=== PATIENT | female | born 1975 | race Caucasian/White ===

== ENCOUNTER 2022-12-28 13:25 | Outpatient (OUT) | payer BC, SELFPAY ==
[2022-12-28 14:03] LABS: Basophils Absolute Auto 0.1 10^3/uL (0.0-0.1); Basophils Percent Auto 0.7 % (0.2-2.0); Eosinophils Absolute Auto 0.1 10^3/uL (0.0-0.7); Eosinophils Percent Auto 1.1 % (0.9-7.0); Hematocrit 41.2 % (36.0-48.0); Immature Granulocytes Abs Auto 0.02 10^3/uL (0.00-0.03); Immature Granulocytes Pct Auto 0.3 % (0.0-0.5); Mean Corpuscular Hemoglobin 30.8 pg (26.7-34.0); Mean Corpuscular Volume 90.5 fL (81.0-99.0); Mean Platelet Volume 10.2 fL (9.5-13.5); Monocytes Absolute Auto 0.5 10^3/uL (0.3-0.8); Monocytes Percent Auto 6.7 % (1.7-12.0); Neutrophils Absolute Auto 4.5 10^3/uL (1.4-6.5); Neutrophils Percent Auto 63.2 % (43.0-75.0); Platelet Count 300 10^3/uL (150-450); Red Blood Count 4.55 10^6/uL (4.20-5.40); Red Cell Distribution Width 11.9 % (11.0-15.0); White Blood Count 7.1 10^3/uL (4.0-11.0)
[2022-12-28 14:21] LABS: Estimated Average Glucose 94 mg/dL; Glycohemoglobin A1C 4.9 % (4.5-6.2)
[2022-12-28 15:21] LABS: Alanine Aminotransferase 20 U/L (14-59); Albumin Globulin Ratio 1.2; Albumin Level 4.1 g/dL (3.4-5.0); Alkaline Phosphatase 48 U/L (46-116); Anion Gap 10.1; Aspartate Amino Transferase 15 U/L (15-37); BUN Creatinine Ratio 6.6; Bilirubin Total 0.7 mg/dL (0.2-1.0); Calcium 8.6 mg/dL (8.5-10.1); Carbon Dioxide 29.5 mmol/L (21.0-32.0); Chloride 101 mmol/L (98-107); Chol HDL Ratio 2.6; Cholesterol 168 mg/dL (<=200); Estimated GFR (African America >60 (>=60); Estimated GFR (Non-African Ame >60 (>=60); Globulin 3.4 g/dL; Glucose 85 mg/dL (74-106); HDL Cholesterol 65 mg/dL (40-60); Potassium 3.6 mmol/L (3.5-5.1); Sodium 137 mmol/L (136-145); Thyroid Stimulating Hormone 0.925 uIU/mL (0.358-3.740); Total Protein 7.5 g/dL (6.4-8.2); Triglycerides 66 mg/dL (<=150); VLDL CHOLESTEROL 13.2 mg/dL
== END 2022-12-28 13:26 | disposition home or self-care (01) ==
PROVIDERS: PCP Nurse Practitioner; Visit Provider Nurse Practitioner
DX: Z00.00 Encounter for general adult medical examination without abnormal findings (principal)
CPT/HCPCS: 36415; 80053; 80061; 83036; 84443; 85025

== ENCOUNTER 2023-01-15 18:37 | Emergency (ER) | payer BC, SELFPAY ==
[2023-01-15 18:50] VITALS: BP 153/88; PULSE 69; RESP 18; TEMP 36.7; O2SAT 98; BMI 27.1
--- NOTE | 2023-01-15 18:57 | CT_ITS ---
The [address] [address] Patient Name: ANA CHO MRN: [id number] date: 1975 Sex: F Assigned Patient Location: ER Current Patient Location: ER Accession/Order Number: [id number] Exam Date: 01/15/2023 19:28 Report Date: 01/15/2023 20:09 At the request of: MIGNON NARAYANAN Procedure: CT facial bones wo con EXAM: CT facial bones wo con TECHNIQUE: Axial CT images were obtained through the facial bones along with sagittal and coronal reformatted images. Dose reduction techniques were achieved by using automated exposure control and/or adjustment of mA and/or kV according to patient size and/or use of iterative reconstruction technique. HISTORY: trauma COMPARISON: None. FINDINGS: Fracture: None Orbits: Globes are intact. Extraocular musculature is unremarkable and symmetric. There is no retrobulbar hematoma. Soft tissues: No soft tissue mass or large soft tissue hematoma. Sinuses: Minimal mucosal thickening left maxillary sinus. CT/CT facial bones wo con IMPRESSION: No facial bone fracture Electronically authenticated by: CATIE ROSENBERG Date: 01/15/2023 20:09
--- NOTE | 2023-01-15 19:14 | ED.FALL1 ---
HPI - Fall General Chief Complaint: Fall Stated Complaint: FALL FACE INJURY Time Seen by Provider: 01/15/23 18:55 Source: patient Mode of arrival: walk-in Limitations: no limitations History of Present Illness HPI Narrative: 47-year-old female presents for primarily facial injuries. She was riding her bike and the dog's leash was tied to the handlebars and the squirrel ran across the street. The dog lurched for the squirrel and it pulled her down and she landed primarily on her face but also sustained abrasions to her leg. Her LOC. No chest pain shortness of breath or abdominal pain. No LOC. This happened just before coming into the emergency department. Related Data Home Medications Medication Instructions Recorded Confirmed No Known Home Medications 01/15/23 01/15/23 Previous Rx's Medication Instructions Recorded acetaminophen 300 mg-codeine 30 mg 1 tab PO Q6H PRN pain #20 tabs 01/15/23 tablet Allergies Allergy/AdvReac Type Severity Reaction Status Date / Time No Known Drug Allergies Allergy Verified 01/15/23 18:55 Review of Systems ROS Narrative A ten point review of systems is negative except as noted above. Exam Narrative Exam Narrative: Nurses note and vital signs reviewed and patient is not hypoxic. General: The patient appears well and in no apparent distress. Patient is resting comfortably on cart. Skin: Warm, dry, no pallor noted. There is no rash noted. Head: Normocephalic, abrasions present primarily on her chin and a small bruise on the inside the lower lip. No tooth is cracked chipped or loose. There is some tenderness and swelling to her nose and minimal amount of bruising just medial to the left eye at the base of the bridge of the nose. No laceration present that would require sutures. Eye: Normal conjunctiva, no drainage Ears, Nose, Mouth, and Throat: oral mucosa is moist. Nares patent. Cardiovascular: Regular Rate and Rhythm Respiratory: Patient is in no distress, no accessory muscle use, lungs are clear to auscultation, no wheezing, rales or rhonchi Back: non-tender in the cervical, thoracic, and lumbar spines GI: soft and nontender Musculoskeletal: all extremity joints have full range of motion. There are abrasions to her legs and at the right anterior superior iliac spine area. Neurological: A&O, normal speech Psychiatric: Cooperative Constitutional Vital Signs, click to edit/add: Last Vital Signs Temp 98.1 F 01/15/23 18:50 Pulse 75 01/15/23 20:05 Resp 14 01/15/23 20:05 BP 128/89 01/15/23 20:05 Pulse Ox 98 01/15/23 20:05 O2 Del Method Room Air 01/15/23 18:50 Course Vital Signs Vital signs: Vital Signs Temperature 98.1 F 01/15/23 18:50 Pulse Rate 69 01/15/23 18:50 Respiratory Rate 18 01/15/23 18:50 Blood Pressure 153/88 H 01/15/23 18:50 Pulse Oximetry 98 01/15/23 18:50 Oxygen Delivery Method Room Air 01/15/23 18:50 Temperature 98.1 F 01/15/23 18:50 Pulse Rate 75 01/15/23 20:05 Respiratory Rate 14 01/15/23 20:05 Blood Pressure 128/89 01/15/23 20:05 Pulse Oximetry 98 01/15/23 20:05 Oxygen Delivery Method Room Air 01/15/23 18:50 MDM - Fall MDM Narrative Medical decision making narrative: CT scan of facial bones per radiologist shows no acute findings. Tetanus is already up-to-date and she is provided Tylenol 3 as pain medication. Treatment diagnosis and follow-up were discussed with the patient. Differential Diagnosis Differential diagnosis: Likely other (facial fracture, facial abrasions) Imaging Data CT facial bones: Radiologist's impression: no acute findings Discharge Plan Discharge Chief Complaint: Fall Clinical Impression: Abrasion of face Patient Disposition: Home, Self-Care Time of Disposition Decision: 20:17 Condition: Good Mode of Transportation: Private Vehicle Prescriptions / Home Meds: New acetaminophen-codeine 300-30 mg tablet 1 tab PO Q6H PRN (Reason: pain) Qty: 20 0RF Rx Instructions: S00.81XA No Action No Known Home Medications Instructions: Abrasion (ED) Stand Alone Forms: Portal Instructions Referrals: Loida Arroyo [Primary Care Provider] - 1 week
--- NOTE | 2023-01-15 19:27 | PC.NURSE ---
Pt was riding her bike with her dog leash hooked to her bike when her dog saw a squirrel and took off after it. Pt face planted the ground/grass sustaining bruising and abrasions to chin, bruising to left inner eye area where her glasses stuck in her face. pt also has a bruise to her right thigh and an abrasion to right lower extremity.
[2023-01-15 20:05] VITALS: BP 128/89; PULSE 75; RESP 14; O2SAT 98
[2023-01-15 20:32] VITALS: BP 129/89; PULSE 62; RESP 14; TEMP 36.6; O2SAT 98
== END 2023-01-15 20:42 | disposition home or self-care (01) ==
PROVIDERS: Emergency Provider Emergency Medicine; PCP Nurse Practitioner
DX: S00.81XA Abrasion of other part of head, initial encounter (principal); V19.3XXA Pedal cyclist (driver) (passenger) injured in unspecified nontraffic accident, initial encounter
CPT/HCPCS: 70486; 99284

== ENCOUNTER 2023-12-29 07:41 | Outpatient (OUT) | payer BC, SELFPAY ==
[2023-12-29 08:16] LABS: Estimated Average Glucose 82 mg/dL; Glycohemoglobin A1C 4.5 % (4.5-6.2)
[2023-12-29 08:19] LABS: Basophils Absolute Auto 0.1 10^3/uL (0.0-0.1); Basophils Percent Auto 1.2 % (0.2-2.0); Eosinophils Absolute Auto 0.1 10^3/uL (0.0-0.7); Eosinophils Percent Auto 1.3 % (0.9-7.0); Hematocrit 39.9 % (36.0-48.0); Hemoglobin 13.5 g/dL (12.0-16.0); Immature Granulocytes Abs Auto 0.02 10^3/uL (0.00-0.03); Immature Granulocytes Pct Auto 0.3 % (0.0-0.5); Lymphocytes Absolute Auto 1.3 10^3/uL (1.2-3.8); Lymphocytes Percent Auto 22.2 % (20.5-60.0); Mean Corpuscular HGB Conc 33.8 g/dL (29.9-35.2); Mean Corpuscular Volume 91.5 fL (81.0-99.0); Mean Platelet Volume 10.1 fL (9.5-13.5); Monocytes Absolute Auto 0.8 10^3/uL (0.3-0.8); Monocytes Percent Auto 12.7 % (1.7-12.0); Neutrophils Absolute Auto 3.7 10^3/uL (1.4-6.5); Neutrophils Percent Auto 62.3 % (43.0-75.0); Platelet Count 253 10^3/uL (150-450); Red Blood Count 4.36 10^6/uL (4.20-5.40)
[2023-12-29 08:28] LABS: Alanine Aminotransferase 16 U/L (14-59); Albumin Globulin Ratio 1.2; Albumin Level 3.7 g/dL (3.4-5.0); Alkaline Phosphatase 49 U/L (46-116); Anion Gap 9.1; Aspartate Amino Transferase 10 U/L (15-37); BUN Creatinine Ratio 9.5; Bilirubin Total 0.5 mg/dL (0.2-1.0); Calcium 8.8 mg/dL (8.5-10.1); Chloride 103 mmol/L (98-107); Chol HDL Ratio 2.3; Cholesterol 163 mg/dL (<=200); Estimated GFR (African America >60 (>=60); Estimated GFR (Non-African Ame >60 (>=60); Globulin 3.1 g/dL; Glucose 95 mg/dL (74-106); HDL Cholesterol 70 mg/dL (40-60); Potassium 4.1 mmol/L (3.5-5.1); Sodium 137 mmol/L (136-145); Thyroid Stimulating Hormone 1.805 uIU/mL (0.358-3.740); Total Protein 6.8 g/dL (6.4-8.2); Triglycerides 50 mg/dL (<=150)
== END 2023-12-29 07:42 | disposition home or self-care (01) ==
LOC: LAB 07:42
PROVIDERS: PCP Nurse Practitioner; Visit Provider Nurse Practitioner
DX: Z00.00 Encounter for general adult medical examination without abnormal findings (principal)
CPT/HCPCS: 36415; 80053; 80061; 83036; 84443; 85025

== ENCOUNTER 2025-01-01 11:56 | Outpatient (OUT) | payer BC, SELFPAY ==
--- OUTSIDE RECORDS SUMMARY | 2024-12-31 11:30 | XMS_ITS | Encounter Summary ---
Author Organization [facility] Address [address] [place] [address] Care Team Providers Care Health Safety Specialist Name Role Phone Venkatesh Tinoco MD Primary Care Provider [phone] Loida Arroyo OFFICER CAPTAIN Unavailable [phone] Reason for Visit * Reason Comments Annual Exam Encounter Details Date Type Department Care Team (Late st Contact Info) Description 12/31/2024 11:30 AM EDT [facility] Visit [facility] [address] [place] [address] Loida Arroyo, YAS [address] [place] [address] Encounter for wellness examination (Primary Dx); Encounter for screening mammogram for malignant neoplasm of breast; Colon cancer screening Social History Tobacco Use Types Packs/Day Years Used Date Smoking Tobacco: Never Smokeless Tobacco: Never Alcohol Use Standard Drinks/Week Comments Not Currently 0 (1 standard drink = 0.6 oz pure alcohol) caffine: sweet tea once a month B1300 Health Literacy Answer Date Recor ded How often do you need to hav e someone help you when you read instructions, pamphlets, or other written material from your doctor or pharmacy? Never 12/26/2023 Social Connection and Isolat ion Panel [NHANES] Answer Date Recorded In a typical week, how many times do you talk on the phone with family, friends, or neighbors? More than three times a week 12/26/2023 How often do you get togethe r with friends or relatives? Once a week 12/26/2023 How often do you attend chur ch or evangelical services? More than 4 times per year 12/26/2023 Do you belong to any clubs o r organizations such as mu-ism groups, unions, fraternal or athletic groups, or school groups? Yes 12/26/2023 How often do you attend meet ings of the clubs or organizations you belong to? More than 4 times per year 12/26/2023 Are you , , di vorced, , never , or living with a partner? 12/26/2023 AUDIT-C Answer Date Recorded Q1: How often do you have a drink containing alc ohol? 2-4 times a month 12/26/2023 Q2: How many drinks containi ng alcohol do you have on a typical day when you are drinking? 1 or 2 12/26/2023 Q3: How often do you have si x or more drinks on one occasion? Never 12/26/2023 Overall Financial Resource Strain (CARDIA) Answe r Date Recorded How hard is it for you to pa y for the very basics like food, housing, medical care, and heating? Not hard at all 12/26/2023 PHQ-2 Answer Date Recorded Patient Health Questionnaire-2 Score 0 12/26/2023 [facility] - Occupational Stress Questionnaire Answer Date Recorded Do you feel stress - tense, restless, nervous, or anxious, or unable to sleep at night because your mind is troubled all the time - these days? Not at all 12/26/2023 Exercise Vital Sign Answer Date Recorde d On average, how many days pe r week do you engage in moderate to strenuous exercise (like a brisk walk)? 5 days 12/26/2023 On average, how many minutes do you engage in exercise at this level? 20 min 12/26/2023 Hunger Vital Sign Answer Date Recorded Within the past 12 months, y ou worried that your food would run out before you got the money to buy more. Never true 12/26/19 24 Within the past 12 months, t he food you bought just didn't last and you didn't have money to get more. Never true 12/26/2023 PRAPARE - Transportation Answer Date Re corded In the past 12 months, has l ack of transportation kept you from medical appointments or from getting medications? No 12/07 In the past 12 months, has l ack of transportation kept you from meetings, work, or from getting things needed for daily living? No 12/26/2023 Housing Stability Vital Sign Answer Geovany e Recorded In the last 12 months, was t here a time when you were not able to pay the mortgage or rent on time? No 12/26/2023 In the past 12 months, how m any times have you moved where you were living? 0 12/26/2023 At any time in the past 12 m [facility], were you homeless or living in a group home (including now)? No 12/26/2023 Comments Unknown Sex and Gender Information Value Date Recorded Sex Assigned at Not on file Legal Sex Female 6:49 PM EDT Gender Identity Female 07/20/2022 6:49 PM EDT Sexual Orientation Not on file documented as of this encounter Last Filed Vital Signs Vital Sign Reading Time Taken Comments Blood Pressure 108/76 12/31/2024 10:56 AM EDT Pulse 60 12/31/2024 10:56 AM EDT Temperature 36.8 C (98.3 F) 12/31/2024 10:56 AM EDT Respiratory Rate 18 12/31/2024 10:56 AM EDT Oxygen Saturation 98% 12/31/2024 10:56 AM EDT Inhaled Oxygen Concentration - - Weight 58.3 kg (128 lb 9.6 oz) 12/31/2024 10:56 AM EDT Height - - Body Mass Index 22.07 12/26/2023 2:16 PM EDT documented in this encounter Progress Notes * Loida Arroyo NP - 12/31/2024 11:30 AM EDT Images from the original note were not included. Arlyn Mayes is a 49 y.o. female presents with chief complaint of Annual Exam HPI: Diet:balanced, needs more diet Activity: daily, walks dog, and core Mental Health Concerns: depression (supplement) Any hearing problems: no Any Vision problems: glasses Any Hospitalizations in the last year: no Specialist:no Concerns: no SUBJECTIVE: MEDICATIONS: No current outpatient medications ALLERGIES: No Known Allergies REVIEW OF SYMPTOMS: Review of Systems Constitutional: Negative for appetite change, chills and fever. HENT: Negative for congestion, ear pain and sore throat. Eyes: Negative for pain, discharge, redness and visual disturbance. Respiratory: Negative for cough, shortness of breath and wheezing. Cardiovascular: Negative for chest pain, palpitations and leg swelling. Gastrointestinal: Negative for abdominal pain, blood in stool, constipation, diarrhea, nausea and vomiting. Genitourinary: Negative for difficulty urinating, dysuria and frequency. Musculoskeletal: Negative for arthralgias, back pain, joint swelling and myalgias. Skin: Negative for rash and wound. Neurological: Negative for dizziness, tremors, seizures, syncope and headaches. Psychiatric/Behavioral: Negative for behavioral problems, self-injury and suicidal ideas. The patient is not nervous/anxious. Hematological: Does not bruise/bleed easily. Endocrine: Negative for polydipsia, polyphagia and polyuria. Allergic/Immunologic: Negative for environmental allergies and food allergies. PAST MEDICAL HISTORY No past medical history on file. Past Surgical History: Procedure Laterality Date BI US GUIDED BREAST LOCALIZATION AND BIOPSY LEFT Left 02/12/2016 BI US GUIDED BREAST LOCALIZATION AND BIOPSY LEFT 02/12/2016 family history is not on file. OBJECTIVE: Visit Vitals BP 108/76 (BP Location: Left arm, Patient Position: Sitting, BP Cuff Size: Adult long) Pulse 60 Temp 98.3 ??F (Temporal) Resp 18 Wt 128 lb 9.6 oz SpO2 98% BMI 22.07 kg/m?? Smoking Status Never BSA 1.62 m?? Physical Exam Vitals and nursing note reviewed. Constitutional: General: She is not in acute distress. Appearance: Normal appearance. HENT: Head: Normocephalic and atraumatic. Right Ear: External ear normal. Left Ear: External ear normal. Nose: Nose normal. Mouth/Throat: Mouth: Mucous membranes are moist. Eyes: Extraocular Movements: Extraocular movements intact. Conjunctiva/sclera: Conjunctivae normal. Neck: Vascular: No carotid bruit. Cardiovascular: Rate and Rhythm: Normal rate and regular rhythm. Pulses: Normal pulses. Heart sounds: Normal heart sounds. No murmur heard. Pulmonary: Effort: Pulmonary effort is normal. Breath sounds: Normal breath sounds. No wheezing or rhonchi. Abdominal: General: Bowel sounds are normal. There is no distension. Palpations: Abdomen is soft. There is no mass. Tenderness: There is no abdominal tenderness. Musculoskeletal: General: Normal range of motion. Cervical back: Normal range of motion and neck supple. Right lower leg: No edema. Left lower leg: No edema. Lymphadenopathy: Cervical: No cervical adenopathy. Skin: General: Skin is warm and dry. Capillary Refill: Capillary refill takes 2 to 3 seconds. Findings: No rash. Neurological: General: No focal deficit present. Mental Status: She is alert and oriented to person, place, and time. Psychiatric: Mood and Affect: Mood normal. Behavior: Behavior normal. Thought Content: Thought content normal. Judgment: Judgment normal. ASSESSMENT AND PLAN: No follow-ups on file. Problem List Items Addressed This Visit Encounter for wellness examination - Primary Reviewed Ht/Wt/BMI Recommend eye exam yearly Recommend dental exams twice a year Balance work/leisure activities Exercises is recommended most days of the week (appropriate as chronic conditions allow) Follow up yearly and prn Relevant Orders CBC and differential Comprehensive metabolic panel Lipid panel TSH Hemoglobin A1c Encounter for screening mammogram for malignant neoplasm of breast Recommend that she get a yearly mammogram Encourage monthly BSE Declines Colon cancer screening Colon cancer screening options were discussed with patient, as well as why colon cancer screening is indicated. Options are Colonoscopy: direct visualization, every 10 years (unless indicated more frequently), risks and benefits were discussed Cologuard: every 3 years, risks and benefits were discussed , contraindications were discussed (family hx of colon cancer, colon polyps) Patient has elected to: will think about it * Loida Arroyo NP - 12/31/2024 6:31 AM EDTAssociated Problem(s): Colon cancer screening Colon cancer screening options were discussed with patient, as well as why colon cancer screening is indicated. Options are Colonoscopy: direct visualization, every 10 years (unless indicated more frequently), risks and benefits were discussed Cologuard: every 3 years, risks and benefits were discussed , contraindications were discussed (family hx of colon cancer, colon polyps) Patient has elected to: will think about it * Loida Arroyo NP - 12/31/2024 6:31 AM EDTAssociated Problem(s): Encounter for screening mammogram for malignant neoplasm of breast Recommend that she get a yearly mammogram Encourage monthly BSE Declines * Loida Arroyo NP - 12/31/2024 6:30 AM EDTAssociated Problem(s): Encounter for wellness examination Reviewed Ht/Wt/BMI Recommend eye exam yearly Recommend dental exams twice a year Balance work/leisure activities Exercises is recommended most days of the week (appropriate as chronic conditions allow) Follow up yearly and prn documented in this encounter Plan of Treatment Scheduled Orders Name Type Priority Associated Diagnoses Orde r Schedule CBC and differential Lab Routine Encounter for wellness examination Expected: 12/31/2024 (Approximate), Expires: 12/31/2025 Comprehensive metabolic panel Lab Routine Encounter for wellness examination Expected: 12/31/2024 (Approximate), Expires: 12/31/2025 Lipid panel Lab Routine Encounter for wellness examination Expected: 12/31/2024 (Approximate), Expires: 12/31/2025 TSH Lab Routine Encounter for wellness examination Expected: 12/31/2024 (Approximate), Expires: 12/31/2025 Hemoglobin A1c Lab Routine Encounter for wellness examination Expected: 12/31/2024 (Approximate), Expires: 12/31/2025 documented as of this encounter Visit Diagnoses Diagnosis Encounter for wellness examination- Primary Encounter for screening mammogram for malignant neoplasm of breast Colon cancer screening Special screening for malignant neoplasms, colon documented in this encounter Care Teams Health Safety Specialist Relationship Specialty Start Date End Date Venkatesh Tinoco MD [address] [place] [address] PCP - General Family Medicine 10/24/24 Loida Arroyo NP [address] [place] [address] Nurse Practitioner Family Medicine 10/24/24 documented as of this encounter
--- OUTSIDE RECORDS SUMMARY | 2025-01-01 11:58 | XMS_ITS | Clinical Summary ---
Author Organization [facility] Healthcare Address [address] [place] [address] Care Team Providers Care Case Mgr Name Role Phone Venkatesh Tinoco MD Primary Care Provider [phone] Loida Arroyo YARROW GATHERER Unavailable [phone] Allergies No known active allergies Medications No known medications Active Problems Problem Noted Date Diagnosed Date Encounter for screening mamm ogram for malignant neoplasm of breast 12/31/2024 Assessment & Plan (12/31/2024 12:37 PM EDT): Recommend that she get a yearly mammogram Encourage monthly BSE Declines Colon cancer screening 12/31/2024 Assessment & Plan (12/31/2024 12:37 PM EDT): Colon cancer screening options were discussed with patient, as well as why colon cancer screening is indicated. Options are Colonoscopy: direct visualization, every 10 years (unless indicated more frequently), risks and benefits were discussed Cologuard: every 3 years, risks and benefits were discussed , contraindications were discussed (family hx of colon cancer, colon polyps) Patient has elected to: will think about it Encounter for wellness examination 12/26/2023 Assessment & Plan (12/31/2024 6:30 AM EDT): Reviewed Ht/Wt/BMI Recommend eye exam yearly Recommend dental exams twice a year Balance work/leisure activities Exercises is recommended most days of the week (appropriate as chronic conditions allow) Follow up yearly and prn Assessment & Plan (12/26/2023 2:44 PM EDT): Reviewed Ht/Wt/BMI Recommend eye exam yearly Recommend dental exams twice a year Balance work/leisure activities Exercises is recommended most days of the week (appropriate as chronic conditions allow) Follow up yearly and prn Lump of breast, left 03/10/2016 Encounters Date Type Department Care Team Description 12/31/2024 11:30 AM EDT Office Visit [facility] [address] [place] [address] Loida Arroyo NP Encounter for wellness examination (Primary Dx); Encounter for screening mammogram for malignant neoplasm of breast; Colon cancer screening 12/31/2024 Bamboo flowsheet [facility] [address] [place] [address] Loida Arroyo NP from Last 3 Months Immunizations Immunization Administration Dates Next Due Influenza, injectable, quadrivalent 03/18/2019,0 01/30/2018,03/15/2017 Influenza, injectable, quadr ivalent, preservative free 02/17/2016 Influenza, seasonal, injecta ble, preservative free 03/04/2015,02/08/2013,03/16/2012 Td (adult), 5 Lf tetanus tox oid, preservative free, adsorbed 06/23/2009 Tdap 03/16/2016,06/19/2011,06/23/2009 Social History Tobacco Use Types Packs/Day Years Used Date Smoking Tobacco: Never Smokeless Tobacco: Never Tobacco Cessation:Counseling Given: Not Answered Alcohol Use Standard Drinks/Week Comments Not Currently [...] often do you attend chur ch or taoism services? More than 4 times per year 12/26/2023 Do you belong to any clubs o r organizations such as cheondoism groups, unions, fraternal or athletic groups, or [...] Recorded Patient Health Questionnaire-2 Score 0 12/26/2023 [facility] of Occupat ional Health - Occupational Stress [...] any time in the past 12 m [facility], were you homeless or living in a group home (including now)? No 12/26/2023 Comments Unknown Sex and Gender Information Value Date Recorded Sex Assigned at Not on file Legal Sex Female 6:49 PM EDT Gender Identity Female 07/20/2022 6:49 PM EDT Sexual Orientation Not on file Last Filed Vital Signs Vital Sign Reading Time Taken Comments Blood Pressure 108/76 12/31/2024 10:56 AM EDT Pulse 60 12/31/2024 10:56 AM EDT Temperature 36.8 C (98.3 F) 12/31/2024 10:56 AM EDT Respiratory Rate 18 12/31/2024 10:56 AM EDT Oxygen Saturation 98% 12/31/2024 10:56 AM EDT Inhaled Oxygen Concentration - - Weight 58.3 kg (128 lb 9.6 oz) 12/31/2024 10:56 AM EDT Height 162.6 cm (5' 4 ) 12/26/2023 2:16 PM EDT Body Mass Index 22.07 12/26/2023 2:16 PM EDT Plan of Treatment Health Maintenance Due Date Last Done Comments CT Colonography 1977 Colonoscopy 1977 FIT-DNA 1977 FIT 1977 FOBT 1977 Sigmoidoscopy 1977 HPV/Cotest 2007 Colorectal Cancer Screening 12/31/2025 Postponed from 1977 (Patient Refused) Mammogram 12/31/2025 12/31/2024 (Denice ent Refused), 12/26/2023 (Patient Refused), 12/07/2018, Additional history exists Cervical Cancer Screening 12/25/2026 Pap Smear 12/25/2026 12/26/2023 (Denice ent Refused) Influenza Vaccine Discontinued 03/18/2019, , 03/15/2017, Additional history exists Procedures Procedure Name Priority Date/Time Associated Diagnosis Comments BI MAMMOGRAM SCREENING BILATERAL Routine 12/07/2018 Encounter for other screening for malignant neoplasm of breast Encounter for screening for malignant neoplasm of cervix Encounter for gynecological examination (general) (routine) without abnormal findings from Last 3 Months or Most Recently Relevant to Health Maintenance Results * Bilateral screening mammogram (12/07/2018) Anatomical Region Laterality Modality Breast Bilateral Mammography Impressions 12/07/2018 12:00 AM EDT CATEGORY 2 ? Benign. Electronically Signed by: Atul Hughes at 2018-12-07 11:[id number] Narrative 12/07/2018 12:00 AM EDT PERFORMED AT [facility] LOCATION:[place] [id number] [facility] [address] ?? X-Ray ?? CT ?? MRI ?? Mammography ?? Ultrasound ?? Bone Density PATIENT NAME: , ORDERING PHYSICIAN: PATIENT : EXAM DATE: EXAM: PROCEDURE: CC and MLO views of both breasts were performed, comparison made to the prior exam of 2017. FINDINGS: Breast composition demonstrates heterogeneously dense parenchyma. Typically benign calcifications remain. No suspicious microcalcifications, asymmetry, architectural distortion or associated features are present. Overall appearance is stable. Procedure Note CONVERSION, GENERIC - 11/11/2022 PERFORMED AT [facility] LOCATION:[place] [address] [address], [address], [place] [address] ?? X-Ray ?? CT ?? MRI ?? Mammography ?? Ultrasound ?? Bone Density PATIENT NAME: , ORDERING PHYSICIAN: PATIENT : EXAM DATE: EXAM: PROCEDURE: CC and MLO views of both breasts were performed, comparisonmade to the prior exam of 2017. FINDINGS: Breast composition demonstrates heterogeneously dense parenchyma.Typically benign calcifications remain. No suspicious microcalcifications, asymmetry,architectural distortion or associated features are present. Overall appearance isstable. IMPRESSION: CATEGORY 2 ? Benign. Electronically Signed by: Atul Hughes at :[id number] Nancy Gonzalez Mir[facility] CN IMG BI PROCEDURES Final Resu lt from Last 3 Months or Most Recently Relevant to Health Maintenance Insurance [employer] Care Teams Case Mgr Relationship Specialty Start Date End Date Venkatesh Tinoco MD [address] [place] [phone] PCP - General Family Medicine 10/24/24 Loida Arroyo NP [address] [place] [phone] Nurse Practitioner Family Medicine 10/24/24
--- OUTSIDE RECORDS SUMMARY | 2025-01-01 11:58 | XMS_ITS | Clinical Summary ---
Author Organization [facility] Address [id number] [address] [place] [address] Care Team Providers Care Chicken Vaccinator Name Role Phone Unavailable Primary Care Provider Unavailabl e Allergies No known active allergies Medications folic acid (FOLVITE) 800 MCG tablet Take 400 mcg by mouth daily. Active VIRT-PN DHA 27-1-300 mg capsule Take by mouth once daily. 0 02/27/2016 Active norethindrone (MICRONOR) 0.35 mg tabletIndication s: examination following vaginal delivery Take 1 tablet (0.35 mg total) by mouth daily. 28 tablet 12 04/25/2016 Active Active Problems Problem Noted Date Diagnosed Date Vaginal delivery 03/16/2016 First degree perineal laceration during delivery 03/16/2016 Hypertension affecting in third trimes ter 03/14/2016 Gestational hypertension 03/14/2016 High-risk , elderly multigravida in third trimester 03/10/2016 Lump of breast, left 03/10/2016 Immunizations Immunization Administration Dates Next Due Tdap 03/16/2016 Family History Medical History Relation Name Comments Breast cancer Maternal Grandmother Breast cancer Paternal Grandmother Cancer Paternal Grandmother liver Relation Name Status Comments Maternal Grandmother Paternal Grandmother Social History Tobacco Use Types Packs/Day Years Used Date Smoking Tobacco: Never Smokeless Tobacco: Never Alcohol Use Standard Drinks/Week Comments Yes 0 (1 standard drink = 0.6 oz pur e alcohol) occasional Childcare Answer Date Recorded Childcare Unknown 10/17/2018 Employment Answer Date Recorded Employment Unknown 10/17/2018 Purpose - Life Answer Date Recorded Purpose and direction in life Unknown Comments No Sex and Gender Information Value Date Recorded Sex Assigned at Not on file Legal Sex Female 12:04 PM EDT Gender Identity Not on file Sexual Orientation Not on file Last Filed Vital Signs Vital Sign Reading Time Taken Comments Blood Pressure 118/82 04/25/2016 1:56 PM EST Pulse 68 03/16/2016 4:17 PM EST Temperature 36.6 C (97.9 F) 03/16/2016 2:13 PM EST Respiratory Rate 16 03/16/2016 2:13 PM EST Oxygen Saturation 99% 03/15/2016 5:00 AM EST Inhaled Oxygen Concentration - - Weight 68.9 kg (152 lb) 04/25/2016 1:56 PM EST Height 160 cm (5' 3 ) 04/25/2016 1:56 PM EST Body Mass Index 26.93 04/25/2016 1:56 PM EST Plan of Treatment Health Maintenance Due Date Last Done Comments Depression Screening 1989 Tobacco Screening 1989 Adult BMI Screening 1995 Pap Smear 1998 Influenza Vaccine 01/06/2025 DTaP,Tdap and Td Vaccines (2 - Td or Tdap) 03/16/2026 03/16/2016 Medical Devices Not on file Insurance [employer]
--- OUTSIDE RECORDS SUMMARY | 2025-01-01 11:58 | XMS_ITS | Encounter Summary ---
Author Organization [facility] Address [address] [place] [address] Care Team Providers Care Director Traffic And Planning Name Role Phone Venkatesh Tinoco MD Primary Care Provider Loida Arroyo ACCOUNTS RECEIVABLE REPRESENTATIVE Unavailable [phone] Encounter Details Date Type Department Care Team (Late st Contact Info) Description 12/31/2024 Bamboo flowsheet [facility] [address] [place] [phone] Loida Arroyo, ACCOUNTS RECEIVABLE REPRESENTATIVE [address] [place] [id number] Social History Tobacco Use Types Packs/Day Years [...] week 12/26/2023 How often do you attend [facility] or druze services? More than 4 times per year 12/26/2023 Do you belong to any clubs o r organizations such as restorationist groups, unions, fraternal or athletic groups, or [...] Recorded Patient Health Questionnaire-2 Score 0 12/26/2023 [facility] of Occupat ional Health - Occupational Stress [...] any time in the past 12 m [facility], were you homeless or living in a long-term (including now)? No 12/26/2023 Comments Unknown Sex and Gender Information Value Date Recorded Sex Assigned at Not on file Legal Sex Female 6:49 PM EDT Gender Identity Female 07/20/2022 6:49 PM EDT Sexual Orientation Not on file documented as of this encounter Plan of Treatment Not on file documented as of this encounter Visit Diagnoses Not on filedocumented in this encounter Care Teams Director Traffic And Planning Relationship Specialty Start Date End Date Venkatesh Tinoco MD [address] [place] [address] PCP - General Family Medicine 10/24/24 Loida Arroyo NP [address] [place] [address] Nurse Practitioner Family Medicine 10/24/24 documented as of this encounter
[2025-01-01 12:14] LABS: Hematocrit 40.6 % (36.0-48.0); Hemoglobin 14.3 g/dL (12.0-16.0); Immature Granulocytes Abs Auto 0.02 10^3/uL (0.00-0.03); Immature Granulocytes Pct Auto 0.3 % (0.0-0.5); Lymphocytes Absolute Auto 2.1 10^3/uL (1.2-3.8); Mean Corpuscular HGB Conc 35.2 g/dL (29.9-35.2); Mean Corpuscular Hemoglobin 31.6 pg (26.7-34.0); Mean Corpuscular Volume 89.8 fL (81.0-99.0); Platelet Count 289 10^3/uL (150-450); Red Blood Count 4.52 10^6/uL (4.20-5.40); White Blood Count 8.0 10^3/uL (4.0-11.0)
--- OUTSIDE RECORDS SUMMARY | 2025-01-01 12:39 | XMS_ITS | CCD ---
Author Organization [facility] Inform ion Partnership MUSIC EDUCATION ADJUNCT PROFESSOR [facility] Care Team Providers Care Associate Business Analyst Name Role Phone OLIVER BRODERICK Consulting Unavailable OLIVER BRODERICK Attending Unavailable OLIVER BRODERICK Admitting Unavailable LOIDA ARROYO Attending Unavailable Amber Motta MD Primary Care Provider Cruz THEOLOGY TEACHER, Loida Unavailable Venkatesh Tinoco MD Primary Care Provider [phone] Cruz THEOLOGY TEACHER, Loida Unavailable Problems Active Problems Problem Classification Problem Date Documented Da te Episodic/Chronic Other screening for suspected conditions (not mental disorders or infectious disease) (12 sources) Patient encounter status; Translations: [Encounter for screening mammogram for malignant neoplasm of breast] Onset: 12-31-2024 12-31-2024 Episodic Past or Other Problems Problem Classification Problem Date Documented Da te Episodic/Chronic Nonmalignant breast conditions (8 sources) Lump in left breast; Translations: [Unspecified lump in the left breast, unspecified quadrant] Onset: 03-10-2016 12-26-2023 Episodic Results Test Name Value Interpretation Reference Range Facility ALL CBC WITH AUTO DIFFon BASOPHILS ABSOLUTE AUTO 0 [facility] Basophils/100 WBC (Bld) 0.5 % 0.2 - 2.0 % [facility] Eosinophils/100 WBC (Bld) 0.4 % Low 0.9 - 7.0 % [facility] Erythrocyte distribution width (RBC) [Ratio] 11.7 % 11.0 - 15.0 % [facility] Hematocrit (Bld) [Volume fraction] 40.6 % 36.0 - 48.0 % [facility] Hemoglobin (Bld) [Mass/Vol] 14.3 g/dL 12.0 - 16.0 g/dL [facility] IMMATURE GRANULOCYTES ABS AUTO 0.02 [facility] Immature granulocytes/100 WBC (Bld) 0.3 % 0.0 - 0.5 % [facility] Interpretation and review of laboratory results [facility] LYMPHOC[facility]TES ABSOLUTE AUTO 2.1 [facility] Lymphocytes/100 WBC (Bld) 26.1 % 20.5 - 60.0 % [facility] MCH (RBC) [Entitic mass] 31.6 pg 26.7 - 34.0 pg [facility] MCHC (RBC) [Mass/Vol] 35.2 g/dL 29.9 - 35.2 g/dL [facility] MCV (RBC) [Entitic vol] 89.8 fL 81.0 - 99.0 fL [facility] MONOCYTES ABSOLUTE AUTO 0.5 [facility] Monocytes/100 WBC (Bld) 6.3 % 1.7 - 12.0 % [facility] NEUTROPHILS ABSOLUTE AUTO 5.3 [facility] Neutrophils/100 WBC (Bld) 66.4 % 43.0 - 75.0 % [facility] Platelet mean volume (Bld) [Entitic vol] 10.1 fL 9.5 - 13.5 fL [facility] TBH EO # 0 [facility] TBH PLT 289 [facility] TB RBC 4.52 [facility] WBC 8 [facility] ALL CBC WITH AUTO DIFFon BASOPHILS ABSOLUTE AUTO 0.1 [facility] Basophils/100 WBC (Bld) 1.2 % 0.2 - 2.0 % [facility] Eosinophils/100 WBC (Bld) 1.3 % 0.9 - 7.0 % [facility] Erythrocyte distribution width (RBC) [Ratio] 12.0 % 11.0 - 15.0 % [facility] Hematocrit (Bld) [Volume fraction] 39.9 % 36.0 - 48.0 % [facility] Hemoglobin (Bld) [Mass/Vol] 13.5 g/dL 12.0 - 16.0 g/dL [facility] IMMATURE GRANULOCYTES ABS AUTO 0.02 [facility] Immature granulocytes/100 WBC (Bld) 0.3 % 0.0 - 0.5 % [facility] Interpretation and review of laboratory results [facility] LYMPHOCYTES ABSOLUTE AUTO 1.3 [facility] Lymphocytes/100 WBC (Bld) 22.2 % 20.5 - 60.0 % [facility] MCH (RBC) [Entitic mass] 31.0 pg 26.7 - 34.0 pg [facility] MCHC (RBC) [Mass/Vol] 33.8 g/dL 29.9 - 35.2 g/dL [facility] MCV (RBC) [Entitic vol] 91.5 fL 81.0 - 99.0 fL [facility] MONOCYTES ABSOLUTE AUTO 0.8 [facility] Monocytes/100 WBC (Bld) 12.7 % High 1.7 - 12.0 % [facility] NEUTROPHILS ABSOLUTE AUTO 3.7 [facility] Neutrophils/100 WBC (Bld) 62.3 % 43.0 - 75.0 % [facility] Platelet mean volume (Bld) [Entitic vol] 10.1 fL 9.5 - 13.5 fL [facility] TBH EO # [facility].1 [facility] TB RBC 4.36 [facility] TBH WBC 6.0 [facility] QUANTIFERON TB GOLD PLUSon 0 08-08-2021 QuantiFERON Criteria Comment Normal [facility] Comment on above: Result Comment: The QuantiFERON-TB Gold Plus result is determined by subtracting the Nil value from either TB antigen (Ag) tube. The mitogen tube serves as a control for the test. Performed By: #### Q NTTB #### [facility] [address] [place] [address] Dr. Lori Sapp QuantiFERON Incubation Incubation performed. Normal [facility] Comment on above: Performed By: #### Q NTTB #### [facility] [address] [place] [address] Dr. Lori Sapp QuantiFERON Mitogen Value >10.00 Normal [facility] Comment on above: Performed By: #### Q NTTB #### [facility] [address] [place] [address] Dr. Lori Sapp QuantiFERON Nil Value 0.08 IU/mL Normal [facility] Comment on above: Performed By: #### Q NTTB #### [facility] [address] [place] [address] Dr. Lori Sapp QuantiFERON TB1 Ag Value 0.06 IU/mL Normal [facility] Comment on above: Performed By: #### Q NTTB #### [facility] [address] [place] [address] Dr. Lori Sapp QuantiFERON TB2 Ag Value 0.07 IU/mL Normal [facility] Comment on above: Performed By: #### Q NTTB #### [facility] [address] [place] [address] Dr. Lori Sapp QuantiFERON-TB Gold Plus Negative Normal Negative [facility] Comment on above: Result Comment: Chem iluminescence immunoassay methodology Performed By: #### Q NTTB #### [facility] [address] [place] [address] Dr. Lori Sapp HEPATITIS B SURFACE ANTIBODY , QUANTon 08-07-2021 Hepatitis B Surf AB Quant 55.3 mIU/mL Normal Immunity>9.9 [facility] Comment on above: Result Comment: Stat us of Immunity Anti-HBs Level Inconsistent with Immunity 0.0 - 9.9 Consistent with Immunity >9.9 Performed By: #### H EPBSRF #### [facility] [address] [place] [address] Dr. Lori Sapp MMR IMMUNITYon 08-07-2021 Mumps Abs, IgG <9.0 Critically low Immune >10.9 [facility] Comment on above: Result Comment: Nega tive <9.0 Equivocal 9.0 - 10.9 Positive >10.9 A positive result generally indicates past exposure to Mumps virus or previous vaccination. Performed By: #### M MRIMMU #### [facility] [address] [place] [address] Dr. Lori Sapp Rubella Antibodies, IgG 1.30 index Normal Immune >0.99 [facility] Comment on above: Result Comment: Non- immune <0.90 Equivocal 0.90 - 0.99 Immune >0.99 Performed By: #### M MRIMMU #### [facility] [address] [place], [place] [address] Dr. Lori Sapp Rubeola Ab, IgG 23.7 AU/mL Normal Immune >16.4 [facility] Comment on above: Result Comment: Nega tive <13.5 Equivocal 13.5 - 16.4 Positive >16.4 Presence of antibodies to Rubeola is presumptive evidence of immunity except when acute infection is suspected. Performed By: #### M MRIMMU #### [facility] [address] [place], [place] [address] Dr. Lori Sapp VARICELLA IGG ABon 2 Varicella Zoster IgG 1123 index Normal Immune >165 [facility] Comment on above: Result Comment: Nega tive <135 Equivocal 135 - 165 Positive >165 A positive result generally indicates exposure to the pathogen or administration of specific immunoglobulins, but it is not indication of active infection or stage of disease. Performed By: #### V ARCEL #### [facility] [address] [place], [place] [address] Dr. Lori Sapp Vital Signs Date Time Vital Sign Value Performing Clinician Faci lity 12-31-2024 10:56-0400 Body mass index (BMI) [Ratio] 22.07 kg/m2 Loida Arroyo THEOLOGY TEACHER Work Phone: [facility] 12-31-2024 10:56-0400 Body temperature 98.29 [degF] Loida Cruz THEOLOGY TEACHER Work Phone: [facility] 12-31-2024 10:56-0400 Body weight 58.33 kg Loida Arroyo THEOLOGY TEACHER Work Phone: [facility] 12-31-2024 10:56-0400 Diastolic blood pressure 76 mm[Hg] Loida Arroyo THEOLOGY TEACHER Work Phone: [facility] 12-31-2024 10:56-0400 Heart rate 60 /min Loida Arroyo THEOLOGY TEACHER Work Phone: [facility] 12-31-2024 10:56-0400 Respiratory rate 18 /min Loida Arroyo THEOLOGY TEACHER Work Phone: [facility] 12-31-2024 10:56-0400 SaO2% (BldA) [Mass fraction] 98 % Loidaisaías Dyez THEOLOGY TEACHER Work Phone: [facility] 12-31-2024 10:56-0400 Systolic blood pressure 108 mm[Hg] Loidaisaías Geigerholz THEOLOGY TEACHER Work Phone: [facility] 12-26-2023 14:16-0400 Body height 162.6 cm Loidaisaías Geigerholz THEOLOGY TEACHER Work Phone: [facility] 12-26-2023 14:16-0400 Body mass index (BMI) [Ratio] 22.73 kg/m2 Loida Juanjoholz THEOLOGY TEACHER Work Phone: [facility] 12-26-2023 14:16-0400 Body temperature 97.81 [degF] Loidaisaías Geigerbrandonz THEOLOGY TEACHER Work Phone: [facility] 12-26-2023 14:16-0400 Body weight 60.06 kg Loidaisaías Geigerholz THEOLOGY TEACHER Work Phone: [facility] 12-26-2023 14:16-0400 Diastolic blood pressure 78 mm[Hg] Loidaisaías Geigerholz THEOLOGY TEACHER Work Phone: [facility] 12-26-2023 14:16-0400 Heart rate 74 /min Loidaisaías Geigerholz THEOLOGY TEACHER Work Phone: [facility] 12-26-2023 14:16-0400 Respiratory rate 18 /min Loidaisaías Geigerholz THEOLOGY TEACHER Work Phone: [facility] 12-26-2023 14:16-0400 SaO2% (BldA) [Mass fraction] 100 % Loida Juanjoholz THEOLOGY TEACHER Work Phone: [facility] 12-26-2023 14:16-0400 Systolic blood pressure 112 mm[Hg] Loida Juanjoholz THEOLOGY TEACHER Work Phone: [facility] Healthcare Encounters Encounter Date Encounter Type Care Provider Facility Start: 01-01-2025 End: 01-01-2025 [facility] Result Encounter Loida Arroyo THEOLOGY TEACHER Work Phone: [facility] Unsolicited Start: 01-01-2025 End: 01-01-2025 [facility] Result Encounter Loida Arroyo THEOLOGY TEACHER Work Phone: [facility] Unsolicited Start: 12-31-2024 End: 12-31-2024 Bamboo flowsheet Loida Arroyo THEOLOGY TEACHER Work Phone: [facility] Start: 12-31-2024 End: 12-31-2024 Bamboo flowsheet Loida Arroyo THEOLOGY TEACHER Work Phone: [facility] Start: 12-31-2024 End: 12-31-2024 Patient encounter status Loida Arroyo THEOLOGY TEACHER Work Phone: [facility] Work Phone: Start: 12-31-2024 End: 12-31-2024 Periodic preventive med est patient 40-64yrs Loida Arroyo THEOLOGY TEACHER Work Phone: [facility] Comment on above: Encounter for wellne ss examination (Primary Dx); Encounter for screening mammogram for malignant neoplasm of breast; Colon cancer screening Start: 12-29-2023 End: 12-29-2023 [facility] Result Encounter Loida Arroyo THEOLOGY TEACHER Work Phone: [facility] Unsolicited Start: 12-29-2023 End: 12-29-2023 [facility] Result Encounter Loida Arroyo THEOLOGY TEACHER Work Phone: [facility] Unsolicited Start: 12-26-2023 End: 12-26-2023 Bamboo flowsheet Loida Dyefreddie THEOLOGY TEACHER Work Phone: [facility] Start: 12-26-2023 End: 12-26-2023 Bamboo flowsheet Loida Dyefreddie THEOLOGY TEACHER Work Phone: [facility] Start: 12-26-2023 End: 12-26-2023 Patient encounter status Loida Arroyo THEOLOGY TEACHER Work Phone: [facility] Start: 12-26-2023 End: 12-26-2023 Periodic preventive med est patient 40-64yrs Loida Cruz THEOLOGY TEACHER Work Phone: [facility] Comment on above: Encounter for [facility] examination (Primary Dx) Start: 12-26-2023 End: 12-26-2023 ambulatory LOIDA ARROYO Not Available Start: 08-06-2021 End: 08-06-2021 ambulatory OLIVER DAVIE Facility: Procedures Date Procedure Procedure Detail Performing Clinician Start: 01-01-2025 ALL CBC WITH AUTO DIFF Loida Arroyo THEOLOGY TEACHER Work Phone: Start: 12-31-2024 Mammography Loida Juanjonatasha raúl THEOLOGY TEACHER Work Phone: Start: 12-29-2023 ALL CBC WITH AUTO DIFF Loida Arroyo THEOLOGY TEACHER Work Phone: Start: 12-26-2023 Mammography Loida Ronatashanatasha raúl THEOLOGY TEACHER Work Phone: Start: 12-26-2023 Microscopic observat ion [Identifier] in Cervix by Cyto stain Loida Arroyo THEOLOGY TEACHER Work Phone: Start: 12-07-2018 Mammography Loida Phillips raúl THEOLOGY TEACHER Work Phone: Plan of Treatment Date Care Activity Detail Author Start: 12-25-2026 Screening for malign ant neoplasm of cervix [facility] Start: 12-31-2025 Screening for malign ant neoplasm of breast Mammogram [facility] Start: 12-31-2025 Screening for malign ant neoplasm of colon Colorectal Cancer Screening [facility] Comment on above: Postponed from 06/29 (Patient Refused) Start: 12-31-2024 End: 12-31-2025 CBC W Auto Differential panel - Blood CBC and differential Lab Routine Encounter for wellness examination Expected: 12/31/2024 (Approximate), Expires: 12/31/2025 [facility] Work Phone: Comment on above: Expected: 12/31/2024 (Approximate), Expires: 12/31/2025 Start: 12-31-2024 End: 12-31-2025 Comprehensive metabolic 2000 panel - Serum or Plasma Comprehensive metabolic panel Lab Routine Encounter for wellness examination Expected: 12/31/2024 (Approximate), Expires: 12/31/2025 [facility] Comment on above: Expected: 12/31/2024 (Approximate), Expires: 12/31/2025 Start: 12-31-2024 End: 12-31-2025 Hemoglobin A1c/Hemoglobin.total in Blood Hemoglobin A1c Lab Routine Encounter for wellness examination Expected: 12/31/2024 (Approximate), Expires: 12/31/2025 [facility] Comment on above: Expected: 12/31/2024 (Approximate), Expires: 12/31/2025 Start: 12-31-2024 End: 12-31-2025 Lipid 1996 panel - Serum or Plasma Lipid panel Lab Routine Encounter for wellness examination Expected: 12/31/2024 (Approximate), Expires: 12/31/2025 [facility] Comment on above: Expected: 12/31/2024 (Approximate), Expires: 12/31/2025 Start: 12-31-2024 End: 12-31-2025 Thyrotropin [Units/volume] in Serum or Plasma TSH Lab Routine Encounter for wellness examination Expected: 12/31/2024 (Approximate), Expires: 12/31/2025 [facility] Comment on above: Expected: 12/31/2024 (Approximate), Expires: 12/31/2025 Start: 12-31-2024 End: 12-31-2024 Patient encounter procedure 12/31/2024 11:30 AM EDT Office Visit [facility] [address] [place] [address] Loida Arroyo NP [address] [place] [address] Encounter for wellness examination (Primary Dx); Encounter for screening mammogram for malignant neoplasm of breast; Colon cancer screening [facility] Comment on above: Encounter for wellne ss examination (Primary Dx); Encounter for screening mammogram for malignant neoplasm of breast; Colon cancer screening Start: 12-25-2024 Screening for malign ant neoplasm of breast Mammogram [facility] Start: 12-25-2024 Screening for malign ant neoplasm of colon Colorectal Cancer Screening [facility] Comment on above: Postponed from 06/29 (Patient Refused) Start: 01-07-2024 Influenza vaccination Influenza Vacc ine (#1) [facility] Start: 12-26-2023 End: 12-25-2024 CBC W Auto Differential panel - Blood CBC and differential Lab Routine Encounter for wellness examination Expected: 12/26/2023 (Approximate), Expires: 12/25/2024 [facility] Work Phone: Comment on above: Expected: 12/26/2023 (Approximate), Expires: 12/25/2024 Start: 12-26-2023 End: 12-25-2024 Comprehensive metabolic 2000 panel - Serum or Plasma Comprehensive metabolic panel Lab Routine Encounter for wellness examination Expected: 12/26/2023 (Approximate), Expires: 12/25/2024 [facility] Comment on above: Expected: 12/26/2023 (Approximate), Expires: 12/25/2024 Start: 12-26-2023 End: 12-25-2024 Hemoglobin A1c/Hemoglobin.total in Blood Hemoglobin A1c Lab Routine Encounter for wellness examination Expected: 12/26/2023 (Approximate), Expires: 12/25/2024 [facility] Comment on above: Expected: 12/26/2023 (Approximate), Expires: 12/25/2024 Start: 12-26-2023 End: 12-25-2024 Lipid 1996 panel - Serum or Plasma Lipid panel Lab Routine Encounter for wellness examination Expected: 12/26/2023 (Approximate), Expires: 12/25/2024 [facility] Comment on above: Expected: 12/26/2023 (Approximate), Expires: 12/25/2024 Start: 12-26-2023 End: 12-26-2023 Patient encounter procedure 12/26/2023 2:00 PM EDT Office Visit [facility] [address] [place] [address] Loida Arroyo, YAS [address] [place] [address] Encounter for wellness examination (Primary Dx) [facility] Comment on above: Encounter for wellne ss examination (Primary Dx) Start: 12-26-2023 End: 12-25-2024 Thyrotropin [Units/volume] in Serum or Plasma TSH Lab Routine Encounter for wellness examination Expected: 12/26/2023 (Approximate), Expires: 12/25/2024 [facility] Comment on above: Expected: 12/26/2023 (Approximate), Expires: 12/25/2024 Start: 12-08-2019 Screening for malign ant neoplasm of breast Mammogram [facility] Start: 2007 Screening for malign ant neoplasm of cervix [facility] Start: 1998 Screening for malign ant neoplasm of cervix Pap Smear [facility] Start: 1977 Screening for malign ant neoplasm of colon [facility] Immunizations Immunization Date Immunization Notes Care Provider [facility] 03-18-2019 influenza, injectabl e, quadrivalent, contains preservative Loida Aichholz THEOLOGY TEACHER Work Phone: [facility] 03-18-2019 influenza virus vacc ine, unspecified formulation Loida Aichholz THEOLOGY TEACHER Work Phone: [facility] 01-30-2018 influenza, injectabl e, quadrivalent, contains preservative Loida Aichholz THEOLOGY TEACHER Work Phone: [facility] 03-15-2017 influenza, injectabl e, quadrivalent, contains preservative Loida Aichholz THEOLOGY TEACHER Work Phone: [facility] 03-16-2016 tetanus toxoid, redu buddy diphtheria toxoid, and acellular pertussis vaccine, adsorbed Loida Aichholz THEOLOGY TEACHER Work Phone: [facility] 02-17-2016 influenza, injectabl e, quadrivalent, preservative free Loida Aichholz THEOLOGY TEACHER Work Phone: [facility] 03-04-2015 influenza, seasonal, injectable, preservative free Loida Aichholz THEOLOGY TEACHER Work Phone: [facility] 02-08-2013 influenza, seasonal, injectable, preservative free Loida Aichholz THEOLOGY TEACHER Work Phone: [facility] 03-16-2012 influenza, seasonal, injectable, preservative free Loida Aichholz THEOLOGY TEACHER Work Phone: [facility] 06-19-2011 tetanus toxoid, redu buddy diphtheria toxoid, and acellular pertussis vaccine, adsorbed Loida Aichholz THEOLOGY TEACHER Work Phone: [facility] 06-23-2009 tetanus and diphther ia toxoids, adsorbed, preservative free, for adult use (5 Lf of tetanus toxoid and 2 Lf of diphtheria toxoid) Loida Aichholz THEOLOGY TEACHER Work Phone: [facility] 06-23-2009 tetanus toxoid, redu buddy diphtheria toxoid, and acellular pertussis vaccine, adsorbed Loida Aichholz THEOLOGY TEACHER Work Phone: [facility] Payers Date Payer Category [facility] [id number] 2022 [id number] 2022-Present [phone] [address] [place] [address] [id number] 2022 Unknown [id number] 1975 Unknown [id number] 1957 Self-pay Unknown 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 smoking consumption unknown [facility] Start: 1975 Sex assigned at Not on file [facility] Start: 07-20-2022 Gender identity Identifies as female gender (finding) [facility] Start: 12-26-2023 End: 12-31-2024 Sexual orientation Not on file [facility] Start: 12-26-2023 Tobacco smoking status MEIS Never sm oked tobacco [facility] Start: 12-26-2023 Tobacco use and exposure Smoke less tobacco non-user [facility] Start: 12-26-2023 End: 12-31-2024 Alcoholic beverage intake Ex-drinker (finding) [facility] Start: 12-26-2023 End: 12-31-2024 History of Social function [facility] How often do you nee d to have someone help you when you read instructions, pamphlets, or other written material from your doctor or pharmacy [SILS] Never [facility] Do you belong to any clubs or organizations such as restoration groups, unions, fraternal or athletic groups, or school groups? Yes [facility] Are you now , , , , never or living with a partner? [facility] How often to you hav e a drink containing alcohol? 2-4 times a month [facility] How many standard dr inks containing alcohol do you have on a typical day? 1 or 2 [facility] How often do you hav e 6 or more drinks on 1 occasion? Never [facility] Do you feel stress - tense, restless, nervous, or anxious, or unable to sleep at night because your mind is troubled all the time - these days [OSQ] Not at all [facility] (I/We) worried wheth er (my/our) food would run out before (I/we) got money to buy more. Never true [facility] In the past 12 month s, was there a time when you were not able to pay the mortgage or rent on time? No [facility] Start: 12-26-2023 Alcohol Comment caffine: sweet tea once a month [facility] History of Present illness Narrative 12-31-2024 Loida Arroyo, THEOLOGY TEACHER - 12/31/2024 11:30 AM Trip Arroyo, THEOLOGY TEACHER - 12/31/2024 6:31 AM Trip Arroyo, THEOLOGY TEACHER - 12/31/2024 6:31 AM Trip Arroyo, THEOLOGY TEACHER - 12/31/2024 6:30 AM EDT Note Date & Type Note Facility 12-31-2024 History of Presen t illness Narrative Images from the original note were not [...] Size: Adult long) Pulse 60 Temp 98.3 F (Temporal) Resp 18 Wt 128 lb 9.6 oz SpO2 98% BMI 22.07 kg/m Smoking Status Never BSA 1.62 m Physical Exam Vitals and nursing note reviewed. [...] has elected to: will think about it Associated Problem(s): Colon cancer screening Colon cancer screening [...] has elected to: will think about it Associated Problem(s): Encounter for screening mammogram for malignant neoplasm of breast Recommend that she get a yearly mammogram Encourage monthly BSE Declines Associated Problem(s): Encounter for wellness examination Reviewed Ht/Wt/BMI Recommend eye exam yearly Recommend dental exams twice a year Balance work/leisure activities Exercises is recommended most days of the week (appropriate as chronic conditions allow) Follow up yearly and prn documented in this encounter [facility] History of Present illness Narrative 12-26-2023 Loida Arroyo NP - 12/26/2023 2:44 PM EDTLamilcar Arrooy NP - 12/26/2023 2:00 PM EDT Note Date & Type Note Facility 12-26-2023 History of Presen t illness Narrative Associated Problem(s): Encounter for wellness examination Reviewed Ht/Wt/BMI Recommend eye exam yearly Recommend dental exams twice a year Balance work/leisure activities Exercises is recommended most days of the week (appropriate as chronic conditions allow) Follow up yearly and prn Images from the original note were not included. Arlyn Mayes is a 48 y.o. female presents with chief complaint of No chief complaint on file. HPI: Wellness exam; Diet: balanced, vitamin rich Activity: age appropriate Mood: no concerns Concerns: none SUBJECTIVE: MEDICATIONS: No current outpatient medications ALLERGIES: [...] allergies and food allergies. PAST MEDICAL HISTORY History reviewed. No pertinent past medical history. Past Surgical History: Procedure Laterality Date BI US GUIDED BREAST LOCALIZATION AND BIOPSY LEFT Left 02/12/2016 BI US GUIDED BREAST LOCALIZATION AND BIOPSY LEFT 02/12/2016 family history is not on file. OBJECTIVE: Visit Vitals BP 112/78 (BP Location: Left arm, Patient Position: Sitting, BP Cuff Size: Adult long) Pulse 74 Temp 97.8 F (Temporal) Resp 18 Ht 5' 4 Wt 132 lb 6.4 oz SpO2 100% BMI 22.73 kg/m Smoking Status Never BSA 1.65 m Physical Exam Vitals and nursing note reviewed. Constitutional: General: She is not in acute distress. Appearance: Normal appearance. HENT: Head: Normocephalic and atraumatic. Right Ear: Tympanic membrane, ear canal and external ear normal. Left Ear: Tympanic membrane, ear canal and external ear normal. Nose: Nose normal. No congestion or rhinorrhea. Mouth/Throat: Mouth: Mucous membranes are moist. Pharynx: No oropharyngeal exudate or posterior oropharyngeal erythema. Eyes: Extraocular Movements: Extraocular movements intact. Conjunctiva/sclera: Conjunctivae normal. Neck: Vascular: No carotid bruit. Cardiovascular: Rate and Rhythm: Normal rate and regular rhythm. Pulses: Normal pulses. Heart sounds: Normal heart sounds. Pulmonary: Effort: Pulmonary effort is normal. Breath sounds: Normal breath sounds. Abdominal: General: Bowel sounds are normal. There [...] Orders CBC and differential Comprehensive metabolic panel TSH Hemoglobin A1c Lipid panel documented in this encounter [facility] Evaluation note Note Date & Type Note Facility Evaluation note Diagnosis Encounter for wellness examination- Primary documented in this encounter [facility] Evaluation note Note Date & Type Note Facility Evaluation note Diagnosis Encounter for wellness examination- Primary Encounter for wellness examination- Primary Encounter for screening mammogram for malignant neoplasm of breast Colon cancer screening Special screening for malignant neoplasms, colon documented in this encounter [facility] Summary Purpose Family History No Family History Records FoundNo Family History Records Found Advance Directives No Advanced Directives Records FoundNo Advanced Directives Records Found Additional Source Comments INFORMATION SOURCE (unrecogn ized section and content) DATE CREATED AUTHOR 08/08/2021 [facility] DATE CREATED AUTHOR AUTHOR'S [place] 12/28/2023 [facility] Care Teams (unrecognized sec tion and content) Associate Business Analyst Relationship Specialty Start Date End Date Amber Motta MD [address] [place] [address] PCP - General Family Medicine 09/13/22 Loida Arroyo NP [address] [place] [phone] PCP - [place] [facility] 02/05/23 Associate Business Analyst Relationship Specialty Start Date End Date Amber Motta MD [address] [place] [address] PCP - General Family Medicine 09/13/22 Loida Arroyo NP [address] [place] [phone] PCP - [place] [facility] 02/05/23 Associate Business Analyst Relationship Specialty Start Date End Date Amber Motta MD [address] [place] [address] PCP - General Family Medicine 09/13/22 Loida Arroyo THEOLOGY TEACHER [address] [place] [phone] PCP - [place] [facility] 02/05/23 Associate Business Analyst Relationship Specialty Start Date End Date Venkatesh Tinoco MD [address] [place] [phone] PCP - General Family Medicine 10/24/24 Loida Arroyo NP [address] [place] [phone] Nurse Practitioner Family Medicine 10/24/24 Associate Business Analyst Relationship Specialty Start Date End Date Venkatesh Tinoco MD [address] [place] [phone] PCP - General Family Medicine 10/24/24 Loida Arroyo NP [address] [place] [phone] Nurse Practitioner Family Medicine 10/24/24 Associate Business Analyst Relationship Specialty Start Date End Date Venkatesh Tinoco MD [address] [place] [phone] PCP - General Family Medicine 10/24/24 Loida Arroyo NP [address] [place] [phone] Nurse Practitioner Family Medicine 10/24/24 Reason for Visit (unrecogniz ed section and content) Reason Comments Annual Exam FOR RECORDS PERTAINING TO PATIENTS WHO ARE OR HAVE BEEN ENROLLED IN A CHEMICAL DEPENDENCY/SUBSTANCEABUSE PROGRAM, SOME INFORMATION MAY BE OMITTED. This clinical summary was aggregated from multiple sources. Caution should be exercised in using it in the provision of clinical care. This summary normalizes information from multiple sources, and as a consequence, information in this document may materially change the coding, format and clinical context of patient data. In addition, data may be omitted in some cases. CLINICAL DECISIONS SHOULD BE BASED ON THE PRIMARY CLINICAL RECORDS. [facility]. provides no warranty or guarantee of the accuracy or completeness of information in this document.
[2025-01-01 12:47] LABS: Alanine Aminotransferase 17 U/L (14-59); Albumin Globulin Ratio 1.2; Albumin Level 4.2 g/dL (3.4-5.0); Alkaline Phosphatase 48 U/L (46-116); Anion Gap 12.9; Aspartate Amino Transferase 12 U/L (15-37); Blood Urea Nitrogen 7.0 mg/dL (7.0-18.0); Calcium 8.8 mg/dL (8.5-10.1); Carbon Dioxide 25.8 mmol/L (21.0-32.0); Chloride 102 mmol/L (98-107); Cholesterol 174 mg/dL (<=200); Estimated GFR (African America >60 (>=60 mL/min/1.73m^2); Estimated GFR (Non-African Ame >60 (>=60 mL/min/1.73m^2); Globulin 3.6 g/dL; Glucose 88 mg/dL (74-106); HDL Cholesterol 76 mg/dL (40-60); Potassium 3.7 mmol/L (3.5-5.1); Sodium 137 mmol/L (136-145); Thyroid Stimulating Hormone 1.355 uIU/mL (0.358-3.740); Total Protein 7.8 g/dL (6.4-8.2); Triglycerides 50 mg/dL (<=150); VLDL CHOLESTEROL 10.0 mg/dL
== END 2025-01-01 11:57 | disposition home or self-care (01) ==
LOC: LAB 11:57
PROVIDERS: PCP Nurse Practitioner; Visit Provider Nurse Practitioner
DX: Z00.00 Encounter for general adult medical examination without abnormal findings (principal)
CPT/HCPCS: 36415; 80053; 80061; 83036; 84443; 85025